=== PATIENT | female | born 1985 | race Hispanic/Latino ===

== ENCOUNTER 2019-11-13 09:31 | Emergency (ER) | payer OTHER ==
[2019-11-13 10:57] LABS: BASOPHILS % (AUTO) 0.2 % (0.0-5.0); EOSINOPHILS % (AUTO) 0.1 % (0.0-8.0); LYMPHOCYTES % (AUTO) 21.1 % (21.0-51.0); MEAN CORPUSCULAR HEMOGLOBIN 29.7 pg (27.0-33.0); MEAN CORPUSCULAR HGB CONC 35.6 g/dL (32.0-36.0); MEAN CORPUSCULAR VOLUME 83.3 fL (79-99); MONOCYTES % (AUTO) 5.5 % (3.0-13.0); NEUTROPHILS % (AUTO) 72.8 % (40.0-77.0); PLATELET COUNT (AUTO) 248 K/uL (130-400); RED BLOOD CELL COUNT(AUTO) 4.68 MIL/uL (4.00-5.50); RED CELL DISTRIBUTION WIDTH 11.5 % (11.0-15.5)
[2019-11-13 11:06] LABS: CREATININE 0.5 mg/dL (0.5-1.5); POTASSIUM 3.2 mmol/L (3.5-5.1)
[2019-11-13 11:12] LABS: ALBUMIN 3.9 g/dL (3.5-5.0); BILIRUBIN,TOTAL 0.4 mg/dL (0.2-1.0); TOTAL PROTEIN, SERUM 7.4 g/dL (6.0-8.3)
[2019-11-13] MEDS ORDERED: PROCHLORPERAZINE EDISYLATE 10 MG/2 ML VIAL ONE (11:14)
[2019-11-13] MEDS ORDERED: SODIUM CHLORIDE 0.9% 1000ML 1,000 ML IV ONE (11:14)
[2019-11-13] MEDS ORDERED: KETOROLAC TROMETHAMINE 30MG/ML ONE (11:14)
[2019-11-13 11:41] LABS: AMPHET/METH SCREEN,URINE NEGATIVE (NEGATIVE); BARBITURATE SCREEN, URINE NEGATIVE (NEGATIVE); BENZODIAZEPINES SCREEN,URINE NEGATIVE (NEGATIVE); CANNABINOID SCREEN,URINE POSITIVE (NEGATIVE); COCAINE SCREEN,URINE NEGATIVE (NEGATIVE); OPIATE SCREEN,URINE NEGATIVE (NEGATIVE); PHENCYCLIDINE SCREEN,URINE NEGATIVE (NEGATIVE)
== END 2019-11-13 12:12 | disposition home or self-care (01) ==
LOC: EDH 09:31
DX: R51 Headache (principal); F12.10 Cannabis abuse, uncomplicated; E11.9 Type 2 diabetes mellitus without complications; E78.00 Pure hypercholesterolemia, unspecified
CPT/HCPCS: 36415; 80053; 80305; 85025; 96374; 96375; 99284; J0780; J1885; J7030

== ENCOUNTER 2025-02-25 19:56 | Emergency (ER) | payer OTHER ==
[~2025-02-25] VITALS: Ht 149.9 cm; Wt 64.0 kg
[~2025-02-25 19:56] MED LIST: ACET-2247 PO; CEPH500B PO; CYCL10TA16 PO; NAPR-1180 PO
--- NOTE | 2025-02-25 21:00 | NUR ---
C-COLLAR APPLIED IN TRIAGE.
[2025-02-25] MEDS: CYCLOBENZAPRINE HCL 10 MG TABLET PO ONE (21:16)
[2025-02-25] MEDS: acetaMINOPHEN 500 MG TABLET PO ONE (21:16)
[2025-02-25] MEDS ORDERED: IBUP-2070 PO (23:28)
[2025-02-25] MEDS ORDERED: CYCL10TA16 PO (23:28)
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
[2025-02-25 23:35] VITALS: BP 136/89; PULSE 81; RESP 16; TEMP 97.5; O2SAT 96
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
== END 2025-02-25 23:44 | disposition home or self-care (01) ==
LOC: EDH 19:56
DX: S39.012A Strain of muscle, fascia and tendon of lower back, initial encounter (principal); S40.022A Contusion of left upper arm, initial encounter; E11.9 Type 2 diabetes mellitus without complications; E78.00 Pure hypercholesterolemia, unspecified; I10 Essential (primary) hypertension; V89.2XXA Person injured in unspecified motor-vehicle accident, traffic, initial encounter; Y93.89 Activity, other specified; Y92.89 Other specified places as the place of occurrence of the external cause; Y99.8 Other external cause status
CPT/HCPCS: 72040; 72100; 73090; 73562; 81025; 99284